=== PATIENT | female | born 1990 | race American Indian/Alaskan Native ===

== ENCOUNTER 2018-12-25 13:20 | Emergency (ER) | payer SELFPAY ==
[2018-12-25 13:25] VITALS: BP 122/63; PULSE 61; RESP 18; TEMP 36.6; O2SAT 100; BMI 26.4
--- NOTE | 2018-12-25 13:30 | DI.RAD.S_ITS ---
PROCEDURE: XR ABDOMEN 1V INDICATIONS: constipation TECHNIQUE: One view of the abdomen acquired. COMPARISON: None. FINDINGS: Surgical changes and devices: An intrauterine contraceptive device is present. Bowel: Bowel gas pattern is normal. Moderate residual stool is identified within the colon. No air-filled distended small bowel loops are noted. Soft tissues: No suspicious abdominal calcifications. Visualized solid organ contours appear normal in size. Bones: No suspicious bony lesions. IMPRESSION: No bowel obstruction. Dictated by: Yosi Oconnell M.D. on 12/25/2018 at 12:51 Approved by: Yosi Oconnell M.D. on 12/25/2018 at 12:52
--- NOTE | 2018-12-25 14:22 | ED.ABDPAIN ---
HPI - Abdominal Pain <MANOHAR Jernigan - Last Filed: 12/25/18 21:25> General Chief Complaint: Abdominal Pain Stated Complaint: constipation and blood in stool Time Seen by Provider: 12/25/18 13:52 Source: patient Mode of arrival: ambulatory Limitations: no limitations History of Present Illness HPI narrative: 28-year-old female presents emergency department today complaining of nausea, vomiting, and constipation for the past 4-5 days. She states she has a lot of pressure in her abdomen and she feels leg she has to have a BM. Her last BM was this morning she reported it was hard stool and had streaks of blood in it. Patient denies any abdominal pain, she states this chest pressure. She denies headaches, chest pain, shortness of breath, fevers, dysuria, dizziness, or other concerning symptoms. Patient reports reports significant increase in stress in her personal life lately. Related Data Home Medications Medication Instructions Recorded Confirmed levonorgestrel 14 mcg/24 hrs (3 INTRAUTERINE each 09/26/17 09/26/17 yrs) 13.5 mg intrauterine device Allergies Allergy/AdvReac Type Severity Reaction Status Date / Time No Known Drug Allergies Allergy Verified 09/26/17 12:31 Review of Systems <MANOHAR Jernigan - Last Filed: 12/25/18 21:25> Review of Systems Narrative: REVIEW OF SYSTEMS: GENERAL: Denies fever, chills, malaise, or wt. loss. HENT: No head trauma, sore throat, or dysphagia. EYES: No loss of vision, double vision, eye pain, or irritation. CARDIOVASCULAR: No chest pain, palpitations, or orthopnea. RESPIRATORY: No shortness of breath or cough. GASTROINTESTINAL: Complains of constipation, see HPI GENITOURINARY: No flank pain, urinary incontinence, hesitancy, frequency, or dysuria. No vaginal discharge or dyspareunia. Denies concerns for STIs MUSCULOSKELETAL: No pain, weakness, or trauma. INTEGUMENTARY: No rash, lesions, or pruritus. NEURO: No numbness, tingling, memory loss, confusion, or headaches. PSYCH: No behavior or mood changes. PFSH <MANOHAR Jernigan - Last Filed: 12/25/18 21:25> Medical History No significant past surgical history (Acute) Social History Smoking Status: Current every day smoker Social History Smoking Status: Current every day smoker Exam <MANOHAR Jernigan - Last Filed: 12/25/18 21:25> Initial Vital Signs Initial Vital Signs: Vital Signs Temperature 97.8 F 12/25/18 13:25 Pulse Rate 61 12/25/18 13:25 Respiratory Rate 18 12/25/18 13:25 Blood Pressure 122/63 12/25/18 13:25 Pulse Oximetry 100 12/25/18 13:25 PHYSICAL EXAMINATION: GENERAL: Well groomed, alert, and cooperative. Answers questions promptly and appropriately. Vital signs noted. HENT: Normocephalic, atraumatic. Hearing intact. Oral mucosa is pink and moist. EYES: Conjunctiva pink, sclera white, no periorbital swelling. CARDIOVASCULAR: S1 and S2 sounds normal. Regular rate and rhythm, no murmurs, clicks, or bruits. No pedal edema. RESPIRATORY: Normal respiratory rate, trachea midline, airway patent. No stridor, nasal flaring or accessory muscle use. Lungs are clear in all avilez without wheeze, rhonchi, or crackles. GASTROINTESTINAL: Bowel sounds normoactive. Abdomen is soft and non-tender. No organomegaly, no palpable masses. RECTAL: No external hemorrhoids visualized, no masses palpated. Stool guaiac was negative. GENITALURINARY: No flank tenderness. MUSCULOSKELETAL: Normal gait and coordination. Equal tone and mass bilaterally. EXTREMITIES: CMS intact, no pedal edema. SKIN: Warm, dry, soft, appropriate color for ethnicity. No lesions, rashes, or wounds. NEURO: Alert and Oriented X 3. Good coordination. No ataxia, or sensory deficits, or cognitive issues. PSYCH: Appropriate affect and mood. <Nataly Medrano DO - Last Filed: 12/26/18 19:12> Initial Vital Signs Initial Vital Signs: Vital Signs Temperature 97.8 F 12/25/18 13:25 Pulse Rate 61 12/25/18 13:25 Respiratory Rate 18 12/25/18 13:25 Blood Pressure 122/63 12/25/18 13:25 Pulse Oximetry 100 12/25/18 13:25 Course <MANOHAR Jernigan - Last Filed: 12/25/18 21:25> Course Course Narrative: I had an extensive conversation with patient about trying a oral regimen at home or trying an enema at this time. She opted to try an oral regimen at home. Orders Ordered: Discontinued Medications Magnesium Citrate (Magnesium Citrate) 300 ml PO NOW ONE Stop: 12/25/18 15:51 Last Admin: 12/25/18 15:54 Dose: 300 ml Documented by: SANTOS Ondansetron HCl (Zofran Odt) 4 mg SL NOW ONE Stop: 12/25/18 14:24 Last Admin: 12/25/18 14:44 Dose: 4 mg Documented by: SANTOS Consultations Consultation #1: Patient staffed with Dr. Medrano. Vital Signs Vital signs: Vital Signs - 8 hr 12/25/18 13:25 12/25/18 15:55 Temperature 97.8 F Pulse Rate 61 78 Respiratory Rate 18 18 Blood Pressure 122/63 Blood Pressure [Left Arm] 132/78 Pulse Oximetry 100 98 <Nataly Medrano DO - Last Filed: 12/26/18 19:12> Orders Ordered: Discontinued Medications Magnesium Citrate (Magnesium Citrate) 300 ml PO NOW ONE Stop: 12/25/18 15:51 Last Admin: 12/25/18 15:54 Dose: 300 ml Documented by: SANTOS Ondansetron HCl (Zofran Odt) 4 mg SL NOW ONE Stop: 12/25/18 14:24 Last Admin: 12/25/18 14:44 Dose: 4 mg Documented by: SANTOS Vital Signs Vital signs: Vital Signs - 8 hr 12/25/18 13:25 12/25/18 15:55 Temperature 97.8 F Pulse Rate 61 78 Respiratory Rate 18 18 Blood Pressure 122/63 Blood Pressure [Left Arm] 132/78 Pulse Oximetry 100 98 MDM - Abdominal Pain <MANOHAR Jernigan - Last Filed: 12/25/18 21:25> Medical Records Attestation: I reviewed the patient's medical records. Lab Data Attestation: I reviewed the patient's lab results. Result diagrams: 12/25/18 14:47 12/25/18 14:47 Labs: Lab Results 12/25/18 12/25/18 12/25/18 Range/Units 14:47 14:47 14:47 WBC 6.9 (4.5-11.0) X10^3/uL RBC 4.04 (4.0-5.2) X10^6/uL Hgb 13.3 (12.0-16.0) g/dL Hct 38.0 (36-46) % MCV 93.9 (80-100) fL MCH 32.9 (26-34) PG MCHC 35.0 (30-36) % RDW 12.2 (11.6-14.8) % Plt Count 274 (150-400) X10^3/uL Neut % (Auto) 62.1 (50-75) % Lymph % (Auto) 30.0 (25-40) % Carter % (Auto) 6.4 (3-14) % Eos % (Auto) 0.9 L (2-4) % Baso % (Auto) 0.6 (0-2) % Neut # (Auto) 4300 (0752-4095) /uL Lymph # (Auto) 2100 (5916-7599) /uL Carter # (Auto) 400 (0-900) /uL Eos # (Auto) 100 (0-450) /uL Baso # (Auto) 0 (0-100) /uL Sodium 140 (137-145) mmol/L Potassium 4.0 (3.4-5.1) mmol/L Chloride 104 (98-107) mmol/L Carbon Dioxide 28 (22-32) mmol/L BUN 12 (7-17) mg/dL Creatinine 0.60 (0.52-1.04) mg/dL Estimated GFR > 60.0 (>60) mL/min BUN/Creatinine Ratio 20.0 (6-22) Glucose 95 (70-100) mg/dL Calcium 9.8 (8.4-10.2) mg/dL Total Bilirubin 0.4 (0.2-1.3) mg/dL AST 22 (14-36) IU/L ALT 13 (9-52) IU/L Alkaline Phosphatase 62 (38-126) U/L Total Protein 7.5 (6.3-8.2) g/dL Albumin 4.3 (3.5-5.0) g/dL Globulin 3.2 (1.7-4.1) g/dL Albumin/Globulin Ratio 1.3 (1.0-2.8) Lipase 54 (23-300) U/L Point of care testing: Point of Care Testing Test Results Negative Urine Dip Bedside Urine Glucose Negative Bedside Urine Bilirubin - Negative Bedside Urine Ketone - Negative Urine Specific [place] 1.015 Bedside Urine Occult Blood - Negative Bedside Urine pH 6.0 Bedside Urine Protein - Negative Bedside Urine Urobilinogen - Negative Bedside Urine Nitrite - Negative Bedside Urine Leukocytes - Negative Esterase Imaging Data ABD XR: Radiologist's impression: [address] [address] XRay Report Signed Patient: Radha Lincoln#: [id number] : 1990Acct:[id number] Age/Sex: 28 / FDate of Service: 12/25/18 Loc: ED Accession Number: [id number] Procedure: XR abdomen 1V Ordering Provider: Nataly Medrano D.O. PROCEDURE: XR ABDOMEN 1V INDICATIONS: constipation TECHNIQUE: One view of the abdomen acquired. COMPARISON: None. FINDINGS: Surgical changes and devices: An intrauterine contraceptive device is present. Bowel: Bowel gas pattern is normal. Moderate residual stool is identified within the colon. No air-filled distended small bowel loops are noted. Soft tissues: No suspicious abdominal calcifications. Visualized solid organ contours appear normal in size. Bones: No suspicious bony lesions. IMPRESSION: No bowel obstruction. Dictated by: Yosi Oconnell M.D. on 12/25/2018 at 12:51 Approved by: Yosi Oconnell M.D. on 12/25/2018 at 12:52 MDM Narrative Medical decision making narrative: I believe patient's symptoms are most likely caused by constipation as stool and gas was seen on the x-ray without signs for further concerning etiology. It is possible that the blood streaks she saw in her stool or due from internal hemorrhoids. I am not concerned for a GI bleed as she does not have abdominal pain and her stool guaiac was negative. Less concern for abdominal etiologies such as infection, cholecystitis, or appendicitis due to lack of systemic symptoms such as fever, lack of abdominal pain, and lack of lab abnormal these. It is possible that her constipation may be caused from IBS, she was told in the past that she might have a similar condition to this area. I encouraged follow-up with her primary care provider for further testing such as a colonoscopy if she continues to have symptoms especially blood in her stool. Strict return precautions were given and follow-up instructions discussed. <Nataly Medrano, DO - Last Filed: 12/26/18 19:12> Lab Data Labs: Lab Results 12/25/18 12/25/18 12/25/18 Range/Units 14:47 14:47 14:47 WBC 6.9 (4.5-11.0) X10^3/uL RBC 4.04 (4.0-5.2) X10^6/uL Hgb 13.3 (12.0-16.0) g/dL Hct 38.0 (36-46) % MCV 93.9 (80-100) fL MCH 32.9 (26-34) PG MCHC 35.0 (30-36) % RDW 12.2 (11.6-14.8) % Plt Count 274 (150-400) X10^3/uL Neut % (Auto) 62.1 (50-75) % Lymph % (Auto) 30.0 (25-40) % Carter % (Auto) 6.4 (3-14) % Eos % (Auto) 0.9 L (2-4) % Baso % (Auto) 0.6 (0-2) % Neut # (Auto) 4300 (4937-6330) /uL Lymph # (Auto) 2100 (7547-8781) /uL Carter # (Auto) 400 (0-900) /uL Eos # (Auto) 100 (0-450) /uL Baso # (Auto) 0 (0-100) /uL Sodium 140 (137-145) mmol/L Potassium 4.0 (3.4-5.1) mmol/L Chloride 104 (98-107) mmol/L Carbon Dioxide 28 (22-32) mmol/L BUN 12 (7-17) mg/dL Creatinine 0.60 (0.52-1.04) mg/dL Estimated GFR > 60.0 (>60) mL/min BUN/Creatinine Ratio 20.0 (6-22) Glucose 95 (70-100) mg/dL Calcium 9.8 (8.4-10.2) mg/dL Total Bilirubin 0.4 (0.2-1.3) mg/dL AST 22 (14-36) IU/L ALT 13 (9-52) IU/L Alkaline Phosphatase 62 (38-126) U/L Total Protein 7.5 (6.3-8.2) g/dL Albumin 4.3 (3.5-5.0) g/dL Globulin 3.2 (1.7-4.1) g/dL Albumin/Globulin Ratio 1.3 (1.0-2.8) Lipase 54 (23-300) U/L Point of care testing: Point of Care Testing Test Results Negative Urine Dip Bedside Urine Glucose Negative Bedside Urine Bilirubin - Negative Bedside Urine Ketone - Negative Urine Specific [place] 1.015 Bedside Urine Occult Blood - Negative Bedside Urine pH 6.0 Bedside Urine Protein - Negative Bedside Urine Urobilinogen - Negative Bedside Urine Nitrite - Negative Bedside Urine Leukocytes - Negative Esterase Discharge Plan Departure Patient Disposition: Home Clinical Impression: Constipation Qualifiers: Constipation type: unspecified constipation type Qualified Code(s): K59.00 - Constipation, unspecified Discharge Date/Time: 12/25/18 15:50 Instructions: DI for Constipation Activity Restrictions/Additional Instructions: Thank you for entrusting me with your care today. As discussed, your x-ray shows that your constipated, your labs are negative for concerning signs. Please take OTC docusate sodium 100mg two times a day and one does of metamucil a day until you have consistent stools. You may use senna as needed. Follow up with your primary care provider in the next few weeks for re-evaluation. Return to the emergency department if you develop severe abdominal pain, uncontrollable vomiting, chest pain, high fever, or other concerning symptoms. Prescriptions: No Action levonorgestrel [Madina] 14 mcg/24 hour (3 years) intrauterine device Intrauterine RF: 0 Stand Alone Forms: Work Release Note
[2018-12-25] MEDS: ONDANSETRON 4 MG ODT SL (14:44)
[2018-12-25 14:53] LABS: Add Manual Diff / Slide Review NO; Basophils Absolute Auto 0 /uL (0-100); Basophils Percent Auto 0.6 % (0-2); Eosinophils Absolute Auto 100 /uL (0-450); Eosinophils Percent Auto 0.9 % (2-4); Hemoglobin 13.3 g/dL (12.0-16.0); Lymphocytes Absolute Auto 2100 /uL (1100-4500); Mean Corpuscular Hemoglobin 32.9 PG (26-34); Mean Corpuscular Volume 93.9 fL (80-100); Monocytes Absolute Auto 400 /uL (0-900); Monocytes Percent Auto 6.4 % (3-14); Neutrophils Absolute Auto 4300 /uL (1500-7000); Neutrophils Percent Auto 62.1 % (50-75); Platelet Count 274 X10^3/uL (150-400); Red Blood Cell Count 4.04 X10^6/uL (4.0-5.2); Red Cell Distribution Width 12.2 % (11.6-14.8); White Blood Cell Count 6.9 X10^3/uL (4.5-11.0)
[2018-12-25 15:09] LABS: Lipase 54 U/L (23-300)
[2018-12-25 15:21] LABS: Alanine Aminotransferase 13 IU/L (9-52); Albumin 4.3 g/dL (3.5-5.0); Albumin Globulin Ratio 1.3 (1.0-2.8); Alkaline Phosphatase 62 U/L (38-126); Aspartate Aminotransferase 22 IU/L (14-36); Bilirubin Total 0.4 mg/dL (0.2-1.3); Blood Urea Nitrogen 12 mg/dL (7-17); Calcium 9.8 mg/dL (8.4-10.2); Carbon Dioxide 28 mmol/L (22-32); Chloride 104 mmol/L (98-107); Estimated Glomerular Filt Rate > 60.0 mL/min (>60); Globulin 3.2 g/dL (1.7-4.1); Glucose 95 mg/dL (70-100); HEMOLYSIS < 15 (0-50); Sodium 140 mmol/L (137-145); Total Protein 7.5 g/dL (6.3-8.2)
[2018-12-25] MEDS: MAGNESIUM CITRATE 300 ML SOLUTION PO (15:54)
[2018-12-25 15:55] VITALS: BP 132/78; PULSE 78; RESP 18; O2SAT 98
== END 2018-12-25 15:50 | disposition home or self-care (01) ==
PROVIDERS: Emergency Provider Nurse Practitioner
DX: K59.00 Constipation, unspecified (principal)
CPT/HCPCS: 36415; 74018; 80053; 81003; 81025; 83690; 85025; 99282; 99284

== ENCOUNTER → 2019-11-07 10:20 | Outpatient (CLI) | payer OTHER, MEDICAID, SELFPAY ==
[2019-11-07 12:27] LABS: BUN Creatinine Ratio 13.9 (6-22); Blood Urea Nitrogen 11 mg/dL (7-17); Estimated Glomerular Filt Rate > 60.0 mL/min (>60); Lithium 0.4 mmol/L (0.6-1.2)
[2019-11-07 12:54] LABS: Thyroid Stimulating Hormone 1.92 uIU/mL (0.47-4.68)
== END ==
PROVIDERS: PCP Family Medicine; Referring Provider Family Medicine; Visit Provider Family Medicine
DX: Z51.81 Encounter for therapeutic drug level monitoring (principal); F31.81 Bipolar II disorder
CPT/HCPCS: 36415; 80178; 82565; 84443; 84520

== ENCOUNTER 2023-07-19 11:00 | Emergency (ER) | payer OTHER, MEDICAID, SELFPAY ==
[2023-07-19 11:30] VITALS: BP 141/87; PULSE 67; RESP 18; TEMP 37.3; O2SAT 100; BMI 30.2
--- NOTE | 2023-07-19 11:34 | DI.RAD.S_ITS ---
PROCEDURE: XR HAND RT MIN 3V INDICATIONS: Pain TECHNIQUE: 3 views of the hand(s) acquired. COMPARISON: None. FINDINGS: Bones: No fractures or dislocations. Carpal bones are normally aligned. No suspicious bony lesions. Soft tissues: No suspicious soft tissue calcifications. IMPRESSION: No acute bony abnormality. If pain persists, followup imaging in 5-7 days is recommended to exclude occult fracture. Dictated by: Elza Mejia M.D. on 07/19/2023 at 11:56 Approved by: Elza Mejia M.D. on 07/19/2023 at 11:59
--- NOTE | 2023-07-19 12:03 | PC.NURSE ---
pt reports that she had trouble closing her hand . states she fell at home with a laundry basket in her hand.
--- NOTE | 2023-07-19 12:42 | ED_ITS ---
HPI - Extremity Injury (Upper) <Tr Aguayo PA-C - Last Filed: 07/19/23 12:48> General Chief Complaint: Extremity Injury, Upper Stated Complaint: poss broken rt hand Time Seen by Provider: 07/19/23 11:58 Source: patient Mode of arrival: Ambulatory History of Present Illness HPI narrative: 33-year-old female presents to the ED status post a right hand injury sustained 2 weeks prior to arrival. Patient states that she had a mechanical fall carrying a laundry basket on the sidewalk when she failed to note a 2 inch dip. Patient ended up falling with the laundry basket landing on her right hand. Since then, patient complains of pain in the right hand. Patient states that she is able to move her fingers and hand completely, however is limited due to pain. Patient states she is unable to perform her duties at work as a result of this injury. Patient has been sporadically taking ibuprofen and applying some ice. Patient denies numbness, tingling, weakness. No other injuries. Related Data Allergies Allergy/AdvReac Type Severity Reaction Status Date / Time quetiapine AdvReac Intermediate syncope Verified 05/17/23 15:39 Review of Systems <Tr Aguayo PA-C - Last Filed: 07/19/23 12:48> Constitutional Constitutional: Denies chills, Denies fatigue, Denies fever(s), Denies frequent falls, Denies lethargy and Denies weakness Eyes Eyes: Denies change in vision, Denies eye discharge, Denies irritation and Denies loss of vision ENT Ears, Nose, Mouth, and Throat: Denies change in voice, Denies dizziness, Denies neck pain, Denies sore throat and Denies throat swelling Cardiovascular Cardiovascular: Denies chest pain, Denies irregular heart rhythm, Denies lightheadedness, Denies palpitations, Denies dyspnea, Denies dyspnea on exertion and Denies orthopnea Respiratory Respiratory: Denies cough, Denies dyspnea, Denies dyspnea on exertion and Denies wheezing Gastrointestinal Gastrointestinal: Denies abdominal pain, Denies change in bowel habits, Denies diarrhea, Denies nausea and Denies vomiting Musculoskeletal Musculoskeletal: Denies neck pain and Denies numbness Comments: R hand pain Integumentary/Breasts Skin/Breast: Denies pruritus, Denies erythema, Denies rash and Denies wounds Neurologic Neurologic: Denies behavioral changes, Denies confusion, Denies dizziness, Denies frequent falls, Denies loss of vision, Denies numbness and Denies weakness Psychiatric Psychiatric: Denies anxiety, Denies behavioral changes, Denies confusion, Denies depression, Denies homicidal ideation and Denies suicidal ideation Endocrine Endocrine: Denies fatigue, Denies flushing and Denies palpitations Hematologic/Lymphatic Hematologic/Lymphatic: Denies easy bruising Allergic/Immunologic Allergic/Immunologic: Denies urticaria, Denies throat swelling and Denies wheezing Patient History <Tr Aguayo PA-C - Last Filed: 07/19/23 12:48> Medical History (Updated 07/19/23 @ 12:39 by Tr Aguayo PA-C) Dysphagia Pleuritic chest pain Thoracic region somatic dysfunction Segmental and somatic dysfunction of rib cage Rib pain on left side Industrial bronchitis Chronic cough Migraine headache Abnormal body odor Hyperhidrosis Contact dermatitis Nausea & vomiting Insomnia disorder with non-sleep disorder mental comorbidity Episode of syncope Diarrhea Psychogenic loss of appetite Anxiety and depression Bipolar 2 disorder Surgical History No significant past surgical history Social History Smoking Status: Former smoker alcohol intake: never substance use type: marijuana Smoking Status: Former smoker Substance Use Type: marijuana Exam <Tr Aguayo PA-C - Last Filed: 07/19/23 12:48> Narrative Exam Narrative: Const General:?cooperative, healthy appearing and comfortable [facility] Head:?normal to inspection Ears:?hearing grossly normal bilaterally Nose:?external nose normal Face and sinus:?normal facial exam and sinuses nontender Mouth:?oral mucosae normal Throat:?posterior oropharynx normal Eyes General:?appearance normal, both eyes and all related structures Neck Neck:?normal visual inspection and no lymphadenopathy noted Resp Effort & Inspection:?normal respiratory effort Auscultation:?clear to auscultation bilaterally Cardio Rate:?regular rate Rhythm:?regular rhythm Musculoskeletal There is tenderness to palpation of the right 5th metacarpal. There is full range of motion. Strength and sensation is intact. Patient is neurovascularly intact. Neuro General:?patient alert, patient awake and patient oriented x3 Initial Vital Signs Initial Vital Signs: Vital Signs Temperature 99.1 F 07/19/23 11:30 Pulse Rate 67 07/19/23 11:30 Respiratory Rate 18 07/19/23 11:30 Blood Pressure 141/87 H 07/19/23 11:30 Pulse Oximetry 100 07/19/23 11:30 Oxygen Delivery Method Room Air 07/19/23 11:30 <Shin Brooks MD - Last Filed: 07/26/23 09:28> Initial Vital Signs Initial Vital Signs: Vital Signs Temperature 99.1 F 07/19/23 11:30 Pulse Rate 67 07/19/23 11:30 Respiratory Rate 18 07/19/23 11:30 Blood Pressure 141/87 H 07/19/23 11:30 Pulse Oximetry 100 07/19/23 11:30 Oxygen Delivery Method Room Air 07/19/23 11:30 Course <Tr Aguayo PA-C - Last Filed: 07/19/23 12:48> Orders Ordered: ED Orders 07/19/23 11:34 XR hand RT min 3V Stat Vital Signs Vital signs: Vital Signs - 8 hr 07/19/23 11:30 Temperature 99.1 F Pulse Rate 67 Respiratory Rate 18 Blood Pressure 141/87 H Pulse Oximetry 100 Oxygen Delivery Method Room Air <Shin Brooks MD - Last Filed: 07/26/23 09:28> Orders Ordered: ED Orders 07/19/23 11:34 XR hand RT min 3V Stat Vital Signs Vital signs: Vital Signs - 8 hr 07/19/23 11:30 Temperature 99.1 F Pulse Rate 67 Respiratory Rate 18 Blood Pressure 141/87 H Pulse Oximetry 100 Oxygen Delivery Method Room Air MDM - Extremity Injury (Upper) <Tr Aguayo PA-C - Last Filed: 07/19/23 12:48> MDM Narrative Medical decision making narrative: 33-year-old female presents to the ED status post a right hand injury sustained 2 weeks prior to arrival. Concern for fracture/dislocation versus musculoskeletal sprain/strain versus other. Obtained x-ray which shows no acute findings. Patient fitted with a brace for comfort. Recommend ibuprofen, heat. Recommend follow-up with PCP Dr. Pena as soon as possible for further evaluation and possible PT referrals. ED return precautions were discussed with patient. Patient verbalized understanding. Medical records reviewed: Yes Discharge Plan Departure Patient Disposition: Home Clinical Impression: Hand sprain Qualifiers: Encounter type: initial encounter Laterality: right Qualified Code(s): S63.91XA - Sprain of unspecified part of right wrist and hand, initial encounter Instructions: DI for Hand Injury Activity Restrictions/Additional Instructions: You were evaluated in the ED today for right-sided hand pain. Your x-ray did not show any fractures or dislocations. It appears that your symptoms are due t o a musculoskeletal sprain/strain from the injury. You may take 800 mg of ibuprofen every 8 hours with food for pain and inflammation. You have been fitted with a brace for comfort. You may also apply heat to promote healing. Please follow-up with your PCP Dr. Pena as soon as possible for further evaluation and possible physical therapy referrals. Return to the ED if you have worsening symptoms, numbness, tingling, weakness. Referrals: Bg Pena, [Primary Care Provider] - Stand Alone Forms: Patient Portal/API, Work Release Note ED Sign-out <Shin Brooks MD - Last Filed: 07/26/23 09:28> Cosign ED Attending Cosignature Attestation: I was immediately available in the department for consultation. ?This documentation has been reviewed and I agree with assessment and plan. Supervised by Shin Brooks MD
== END 2023-07-19 12:55 | disposition home or self-care (01) ==
PROVIDERS: Emergency Provider Student in an Organized Health Care Education/Training Program; PCP Family Medicine
DX: S63.91XA Sprain of unspecified part of right wrist and hand, initial encounter (principal); W18.30XA Fall on same level, unspecified, initial encounter
CPT/HCPCS: 73130; 99283

== ENCOUNTER → 2023-10-07 08:16 | Outpatient (CLI) | payer OTHER, SELFPAY ==
--- NOTE | 2023-10-20 11:12 | PC.NURSE ---
Late entry: [facility] called in looking for an address on this patient. She was referred to medical records
== END ==
PROVIDERS: PCP Family Medicine; Referring Provider Physician Assistant; Visit Provider Physician Assistant
DX: A07.1 Giardiasis [lambliasis] (principal); R19.7 Diarrhea, unspecified
CPT/HCPCS: 87177; 87329